=== PATIENT | female | born 1970 | race Caucasian/White ===

== ENCOUNTER → 2016-05-12 | Outpatient (CLI) | payer OTHER ==
[~2016-05-12] MED LIST: ACETAMINOPHEN; AMITRYPTYLINE PO; BACTRIM DS TABL1 TA1 PO; CIPRO PO; EFFEXOR75 M1 PO; ESTRACE2 M1 PO; ESTRADIOL0.5 MG; ESTRO TOP; GABAPENTIN300 MG PO; GABAPENTIN600 MG PO; IBUPROFEN; IRON325 ( 651 PO; KEFLEX500 M2 PO; MELOXICAM15 MG PO; MULTI-VITAMIN1 TAB; MULTIPLE VITAMI1 T11 PO; NIFEREX-150150 MG; OMEPRAZOLE40 M1 PO; PERCOCET; PERCOCET 10/3251 TAB PO; PERCOCET 7.5-31 EACH PO; PHENERGAN25 MG PO; POTASSIUM99 M3 PO; PRILOSEC; PRILOSEC PO; PRILOSEC20 MG; PROBIOTIC1 EACH PO; PROZAC PO; PYRIDIUM PO; ROBAXIN500 MG PO; SOY ISOFLAVONE PO; STOOL SOFTENER1 EAC1 PO; STOOL SOFTENER100 M1 PO; ULTRAM PO; VICODIN 5/1 TAB 5/50 PO; VITAMIN B12-FO1 EACH PO; VOLTAREN75 MG PO; ZOVIRAX800 MG PO
--- NOTE | ~2016-05-12 | CR172 ---
[facility] A Service of [facility] RADIOLOGY TEXT RESULTS PATIENT: JAMES LUCIO LOCATION: [facility] : 66 UNIT #: [id number] AGE: [address]: Earl Hays PA-C SEX: F ORDER DR: [id number] [facility] [address] [place], [place] [address] [id number] O MR#: [id number] #: [id number] NAME: JAMES LUCIO : 1970 SEX: F STUDY DATE/TIME: 05/12/2016 16:55 UNIT: [facility] ROOM: STUDY DESCRIPTION: CR Knee 3 Views Lt Attending Physician: Earl Hays P.A.-C. Referring Physician: Earl Hays P.A.-C. Ordering Physician: Earl Hays P.A.-C. Primary Care Physician: Omar Kate M.D. MEDICAL IMAGING REPORT This report is preliminary unless electronic signature is present EXAM Left knee, 3 views, 05/12/2016 HISTORY Left knee pain for 3 weeks, worsening in the past 3 days. Anterior knee pain radiates laterally with no known injury. Arthritis. FINDINGS AP and lateral projection of the knee shows smooth articular anatomy without indication of fracture or dislocation at the major weight-bearing surface of the knee. There is no indication of radiopaque foreign body about the knee surface or joint effusion. IMPRESSION Normal knee. Dictated by... Keith Og M.D. THIS IS AN ELECTRONICALLY VERIFIED REPORT Keith Og M.D. at 05/13/2016 10:33 AM KENYON/lexie TD: 05/13/2016 04:09 JOB #: [id number] MEDICAL IMAGING REPORT Page 1 of 1 COPY
== END | disposition home or self-care (01) ==
LOC: CRAD 16:28
DX: M25.562 Pain in left knee (principal)
CPT/HCPCS: 73562